=== PATIENT | female | born 1940 | race Caucasian/White ===

== ENCOUNTER 2021-10-25 03:40 | Emergency (ER) | payer OTHER ==
[~2021-10-25] VITALS: Ht 175.3 cm; Wt 59.0 kg
[2021-10-25 04:20] LABS: HEMATOCRIT. 43.9 % (36.0-48.0); HEMOGLOBIN. 14.8 g/dL (12.0-16.0); MEAN CORPUSCULAR VOLUME 86.1 fL (81.0-99.0); MEAN PLATELET VOLUME 7.7 fl (7.4-10.4); PLATELET 166 x1000/uL (130-400); RED CELL DISTRIBUTION WIDTH 14.8 % (11.6-14.6)
[2021-10-25 04:25] LABS: CHLORIDE 109 mEq/L (98-107)
[2021-10-25] MEDS ORDERED: DIAZEPAM 2 MG TABLET PO ONE (05:30)
[2021-10-25] MEDS ORDERED: ACETAMINOPHEN 325MG TABLET PO ONE (05:30)
[2021-10-25 07:05] LABS: CLARITY URINE CLEAR (CLEAR); COLOR URINE YELLOW (YELLOW); KETONES URINE 1+ (NEGATIVE); LEUKOCYTE ESTERASE URINE NEGATIVE (NEGATIVE); NITRITE URINE NEGATIVE (NEGATIVE); OCCULT BLOOD URINE TRACE (NEGATIVE); PH URINE 7.5 (4.5-8.0); PROTEIN URINE NEGATIVE (NEGATIVE); SPECIFIC GRAVITY URINE 1.011 (1.005-1.030); UROBILINOGEN URINE 0.2 E.U./dL (0.2-1.0)
[2021-10-25] MEDS ORDERED: CYCL10TA7 MT (07:19)
[2021-10-25] MEDS ORDERED: ACET650T37 MT (07:19)
[2021-10-25] MEDS ORDERED: IBUP-2028 MT (07:19)
[2021-10-25 07:33] LABS: PLATELET ESTIMATE NORMAL
[2021-10-25 07:47] VITALS: BP 142/71
== END 2021-10-25 08:10 | disposition home or self-care (01) ==
LOC: ER 03:49
DX: S22.31XA Fracture of one rib, right side, initial encounter for closed fracture (principal); W01.0XXA Fall on same level from slipping, tripping and stumbling without subsequent striking against object, initial encounter; Y93.89 Activity, other specified; Y92.89 Other specified places as the place of occurrence of the external cause; Y99.8 Other external cause status; I48.91 Unspecified atrial fibrillation; I10 Essential (primary) hypertension
CPT/HCPCS: 36415; 72128; 72131; 80053; 81003; 85025; 99284